=== PATIENT | male | born 1975 | race Caucasian/White ===

== ENCOUNTER 2021-06-02 12:13 | Emergency (ER) | payer OTHER ==
[2021-06-02] MEDS ORDERED: MORPHINE SULFATE 4 MG/ML SYRINGE IM STA ×2 (12:34→14:34)
--- NOTE | 2021-06-02 13:37 | XR ---
EXAMINATION TYPE: XR mandible complete DATE OF EXAM: 06/02/2021 COMPARISON: NONE HISTORY: Right-sided jaw pain TECHNIQUE: 5 views submitted FINDINGS: Slight irregularity along the right mandibular condyle. Remaining portion of the mandible d emonstrates a lucency just to the right of the midline of the body of the mandible. IMPRESSION: Recommend CT scan for possible right-sided mandibular fracture.
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
[2021-06-02 14:50] VITALS: BP 138/90; PULSE 69; RESP 16; TEMP 97.8
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
[2021-06-02] MEDS ORDERED: ACET/COD 300 MG/30 MG STARTER PACK 6 TAB BTL PO STA (15:36)
== END 2021-06-02 15:50 | disposition home or self-care (01) ==
LOC: EC 12:13
DX: S02.611A Fracture of condylar process of right mandible, initial encounter for closed fracture (principal); S02.641A Fracture of ramus of right mandible, initial encounter for closed fracture; S02.19XA Other fracture of base of skull, initial encounter for closed fracture; Y04.2XXA Assault by strike against or bumped into by another person, initial encounter; Y92.410 Unspecified street and highway as the place of occurrence of the external cause
CPT/HCPCS: 70110; 70486; 99284; 96372; J2270